=== PATIENT | female | born 1950 ===

== ENCOUNTER 2022-04-08 13:42 | Observation (INO) ==
[~2022-04-08 13:42] MED LIST: Buffered Lidocaine 1% SYRIN 1 ml INTRADERM ONE; Lactated Ringers 1000 ml BAG 1,000 ML IV SCH; Lidocaine 2% PF 5 ML VIAL ONE; Propofol 10 MG/ML 20 ML BTL ONE
[2022-04-08] MEDS ORDERED: ceFAZolin 2 GM PREMIX 2 GM/50 ML BAG ONE (14:36)
[2022-04-08] MEDS ORDERED: fentaNYL 100 mcg/2 ml 50 MCG/ML VIAL ONE (15:40)
[2022-04-08] MEDS ORDERED: ROPIVACAINE 5 MG/ML 30 ML BTL (0.5%) ONE (15:40)
[2022-04-08] MEDS ORDERED: Midazolam 2 mg/2 ml VIAL 1 mg/ml 2 ml VIAL (2 mg) ONE (15:40)
[2022-04-08] MEDS ORDERED: Ropivacaine 5 MG/ML 20 ML VIAL 0.5% (100 MG) ONE (15:44)
[2022-04-08] MEDS ORDERED: Phenylephrine IV 10 MG/ML 1 ml VIAL ONE (16:29)
[2022-04-08] MEDS ORDERED: Acetaminophen IV 1 GM/100ML 1,000 MG/100 ML BAG IV ONE (16:45)
[2022-04-08] MEDS ORDERED: Ondansetron 4 mg VIAL 2 MG/ML 2 ml VIAL ONE ×2 (16:50→18:59)
[2022-04-08] MEDS ORDERED: Prochlorperazine 5 mg/ml 2 ml VIAL (10 mg) IV PRN (17:17)
[2022-04-08] MEDS ORDERED: Ondansetron 4 mg VIAL 2 MG/ML 2 ml VIAL IV PRN ×2 (17:17→18:33)
[2022-04-08] MEDS ORDERED: Naloxone 0.4 mg VIAL 0.4 mg/ml 1 ml VIAL IV PRN (17:17)
[2022-04-08] MEDS ORDERED: fentaNYL 100 mcg/2 ml 50 MCG/ML VIAL IV PRN (17:17)
[2022-04-08] MEDS ORDERED: Morphine 2 MG/ML SYRINGE IV PRN (18:33)
[2022-04-08] MEDS ORDERED: Lactulose 30 ml UDC PO PRN (18:33)
[2022-04-08] MEDS ORDERED: Magnesium Hydroxide LIQ 30 ML UDC PO PRN (18:33)
[2022-04-08] MEDS ORDERED: Ondansetron ODT 4 mg TAB 4 MG TAB PO PRN (18:33)
[2022-04-08] MEDS ORDERED: Lactated Ringers 1000 ml BAG 1,000 ML IV SCH (19:00)
[2022-04-08] MEDS: Lactated Ringers 1000 ml BAG 1,000 ML IV SCH (20:10)
[2022-04-08] MEDS: Magnesium Hydroxide LIQ 30 ML UDC PO SCH (20:20)
[2022-04-09] MEDS: ceFAZolin 1 GM ADVAN 1 GM in NS 0.9% 50 ML 50 ML IVPB SCH ×3 (00:19→15:07)
[2022-04-09] MEDS: Lactated Ringers 1000 ml BAG 1,000 ML IV SCH (03:58)
[2022-04-09 05:47] LABS: Hematocrit 37 % (35-47); Mean Platelet Volume 8.1 fL (7.4-10.4); Platelet Count 188 10^3/uL (150-450)
[2022-04-09 06:22] LABS: Calcium 8.1 mg/dL (8.6-10.3); Potassium 4.6 mmol/L (3.5-5.0)
[2022-04-09] MEDS: Magnesium Hydroxide LIQ 30 ML UDC PO SCH (07:58)
[2022-04-09] MEDS ORDERED: Vitamin THERAPEUTIC TAB PO SCH (09:00)
[2022-04-09 11:14] VITALS: BP 127/78
== END 2022-04-09 15:55 | disposition home or self-care (01) ==
LOC: SSU 13:42 → OR 13:42
PROVIDERS: ADMIT Orthopaedic Surgery Adult Reconstructive Orthopaedic Surgery; ATTEND Orthopaedic Surgery Adult Reconstructive Orthopaedic Surgery